=== PATIENT | male | born 1995 | race African-American/Black ===

== ENCOUNTER 2017-03-19 17:31 | Emergency (ER) | payer OTHER ==
[2017-03-19] MEDS ORDERED: TRANEXAMIC ACID 1,000 MG/10 ML VIAL ONE (18:25)
[2017-03-19] MEDS ORDERED: TRANEXAMIC ACID 1,000 MG/10 ML VIAL NAS STA (18:36)
--- NOTE | 2017-03-19 18:36 | ED Physician Documentation ---
History of Present Illness - Stated complaint Stated Complaint: BLEEDING WISDOM TEETH - Chief complaint Chief Complaint: Heent - Additonal information Additional information: hx from pt 21 y/o male wisdom teeth extraction at [facility] this AM bleeding started at noon, heavy by 230 still bleeding heavily from bottom L no bleeding disorder Review of Systems Constitutional: denies: Fever Throat: reports: Dental pain / toothache PD PAST MEDICAL HISTORY - Present Medications Home Medications: Ambulatory Orders Medication Instructions Recorded Confirmed oxyCODONE/ACET 5/325 [Percocet 5 1 tab PO Q4H PRN 03/19/17 03/19/17 mg/325 mg] - Allergies Allergies/Adverse Reactions: Allergies Allergy/AdvReac Type Severity Reaction Status Date / Time No Known Drug Allergies Allergy Verified 03/19/17 17:38 PD ED PE NORMAL - Vitals Vital signs reviewed: Yes - HEENT HEENT: Other (contused bruised swollen gum and adjacent buccal tissue posterior lower left no empty socket seen beeding seems to be coming from posterior to last molar, slows with direct pressure, non pulsatile) Results - Vitals Vitals: Vital Signs - 24 hr 03/19/17 03/19/17 17:32 19:41 Temperature 36.7 C 36.5 C Heart Rate 72 77 Respiratory 16 12 Rate Blood Pressure 130/83 H 121/68 O2 Saturation 100 99 Oxygen O2 Source Room air - Labs Labs: Laboratory Tests 03/19/17 18:30 Hgb 15.4 PD MEDICAL DECISION MAKING - ED course ED course: steady oozing despote direct pressure, dripped 0.5 ml TXA on site and had pt bite on gauze for 15 min to apply direct pressure observed another 1-2 hr s further bleeding feel safe to dc now Departure - Departure Disposition: 01 Home, Self Care Clinical Impression: Post-op bleeding Condition: Good Instructions: Extraction Tooth Mouth Care After Comments: The bleeding has stopped for now. If it reoccurs, bite down on a piece of damp gauze for 15 min and apply ice to the outside of the cheek. If that does not stop the bleeding please come back to the ER Otherwise follow up with your dentist tomorrow
[2017-03-19 21:15] VITALS: BP 111/70
== END 2017-03-19 20:50 | disposition home or self-care (01) ==
LOC: ED 17:31
DX: K91.840 Postprocedural hemorrhage of a digestive system organ or structure following a digestive system procedure (principal); Z98.818 Other dental procedure status
CPT/HCPCS: 36415; 85018; 99283